=== PATIENT | female | born 1995 | race Caucasian/White ===

== ENCOUNTER 2017-10-31 18:57 | Emergency (ER) | payer MEDICAID ==
[~2017-10-31] VITALS: Ht 162.6 cm; Wt 90.3 kg
[2017-11-01 01:20] VITALS: BP 122/86
== END 2017-11-01 01:20 | disposition home or self-care (01) ==
LOC: ER 20:23
DX: J06.9 Acute upper respiratory infection, unspecified (principal); J45.909 Unspecified asthma, uncomplicated
CPT/HCPCS: 71045; 81025; 99283